=== PATIENT | female | born 1985 | race Caucasian/White ===

== ENCOUNTER 2020-07-13 15:18 | Emergency (ER) | payer MEDICAID, OTHER ==
[~2020-07-13] VITALS: Ht 170 cm; Wt 70.0 kg
[~2020-07-13 15:18] MED LIST: BSP10T PO; CLIN300C11 PO; CRS350T PO; CYCL10TA9 PO; DOXY1TAB3 PO; MEDR10TA9 PO; NAPR-243 PO; PREDNISONE; TRAM50TA2 PO; VALA100033 PO; VALA10004 PO
[2020-07-13 16:12] VITALS: BP 109/88
--- NOTE | 2020-07-13 16:14 | ED EENT ---
History of Present Illness General Chief Complaint: Dental Problems/Pain Stated Complaint: TOOTH EXTRACTION PAIN Source: patient, family History of Present Illness Date Seen by Provider: Jul 13, 2020 Time Seen by Provider: 15:30 Initial Comments 35-year-old female presents post first molar extraction earlier today. Patient presents because she was still having some mild bleeding and was concerned possibly spit out a little bit of tooth. Patient does not have any pain at this time. Patient wanted to have it rechecked. She has no other systemic complaints. She has no fevers chills nausea vomiting. Allergies and Home Medications Allergies Coded Allergies: risperidone (Verified Allergy, Mild, 05/07/14) Home Medications Buspirone Hcl 10 Mg Tablet, 10 MG PO TID, (Reported) Clindamycin HCl 300 Mg Capsule, 300 MG PO BID Prescribed by: SUSANNA FARRELL on 08/22/16 0945 Cyclobenzaprine Hcl 10 Mg Tablet, 1 EACH PO TID PRN for SPASMS Prescribed by: RUDY KEE on 08/18/14 1619 Doxylamine/Pyridoxine HCl 1 Each Tablet.dr, 2 EACH PO BID PRN for NAUSEA Prescribed by: SUSANNA FARRELL on 08/22/16 0945 Tramadol Hcl 50 Mg Tablet, 50 MG PO Q4H PRN for PAIN Prescribed by: RUDY KEE on 08/18/14 1619 Valacyclovir HCl 1,000 Mg Tablet, 1,000 MG PO DAILY Prescribed by: SUSANNA FARRELL on 08/22/16 0951 Valacyclovir Hcl 1,000 Mg Tablet, 500 MG PO DAILY FOR SHINGLES Prescribed by: CLAUDIO ANN on 05/08/14 0046 Patient Home Medication List Home Medication List Reviewed: Yes Review of Systems Review of Systems Constitutional: No chills, No fever Ears: No Symptoms Reported Nose: no symptoms reported Mouth: see HPI Throat: no symptoms reported Respiratory: no symptoms reported Cardiovascular: no symptoms reported Gastrointestinal: no symptoms reported Past Rnnkalr-[id number]-Anueqp Hx Past Med/Social Hx: Reviewed Nursing Past Med/Soc Hx Patient Social History Alcohol Use: Denies Use Recreational Drug Use: No Smoking Status: Current Everyday Smoker Type Used: Cigarettes Recent Foreign Travel: No Contact w/Someone Who Travel: No Recent Hopitalizations: No Seasonal Allergies Seasonal Allergies: No Past Medical History Surgeries: Yes (dental) Respiratory: No Cardiac: No Neurological: No Female Reproductive Disorders: Menstrual Problems Sexually Transmitted Disease: Yes (HPV, genital herpes) Gastrointestinal: No Musculoskeletal: Yes Scoliosis Endocrine: No Cancer: No Psychosocial: Yes Anxiety, PTSD, Depression Integumentary: No Blood Disorders: No Physical Exam Height, Weight, BMI Height: 5'7" Weight: 125lbs. oz. [id number]; 18.64 BMI Method:Stated General Appearance: WD/WN, no apparent distress Mouth/Throat: other (patient with recent first molar extraction with appropriate looking socket with no active bleeding.) Cardiovascular: normal peripheral pulses, regular rate, rhythm Respiratory: no respiratory distress, no accessory muscle use Neurologic/Psychiatric: alert, normal mood/affect, oriented x 3 Skin: normal color, warm/dry Progress/Results/Core Measures Progress Progress Note : Time: 16:13 Progress Note Patient socket looks appropriate stated extraction. She should follow-up with dentist if further concerns Departure Impression Primary Impression: Status post tooth extraction Disposition: 01 HOME, SELF-CARE Condition: Stable Departure-Patient Inst. Referrals: NO,LOCAL PHYSICIAN (PCP/Family) Primary Care Physician Patient Instructions: Tooth Extraction, Dry Socket Add. Discharge Instructions: Follow-up with your dentist as needed Tylenol or ibuprofen as needed for pain All discharge instructions reviewed with patient and/or family. Voiced understanding. LESIA STEIN DO Jul 13, 2020 16:14
== END 2020-07-13 16:25 | disposition home or self-care (01) ==
LOC: EDUNIT# 15:18 → ER 15:20
DX: G89.18 Other acute postprocedural pain (principal); F41.9 Anxiety disorder, unspecified; F32.9 Major depressive disorder, single episode, unspecified; F17.210 Nicotine dependence, cigarettes, uncomplicated; Z88.8 Allergy status to other drugs, medicaments and biological substances; Z98.818 Other dental procedure status
CPT/HCPCS: 99284

== ENCOUNTER → 2021-05-17 | Outpatient (CLI) | payer MEDICAID ==
[~2021-05-17] VITALS: Ht 172.7 cm; Wt 76.4 kg
[~2021-05-17] MED LIST changes: -CLIN300C11 PO; +CLIN300C12 PO; +GADOBUTROL 7.5 MMOL/7.5 ML (GADAVIST) VIAL IV ONE; +IOHEXOL 300 MG/ML 50 ML (OMNIPAQUE 300) VIAL IV ONE
--- NOTE | 2021-05-17 13:58 | Diagnostic Imaging Report ---
INDICATION: Right shoulder pain. Patient brought to the procedure room and placed on table in the supine position. Skin of the right shoulder was prepped and draped in usual sterile fashion. Small amount of 1% lidocaine was utilized for local anesthesia. A 22-gauge needle was advanced into the right shoulder and placed with its tip at the rotator interval. A 15 mm solution of iodinated contrast, normal saline and gadolinium was injected under fluoroscopic observation. Needle was removed and hemostasis was obtained. Patient tolerated procedure well and was sent to MRI in satisfactory condition. Total of 15 seconds of fluoroscopic time was utilized. IMPRESSION: Successful right shoulder injection of gadolinium contrast solution, using fluoroscopy. Dictated by: Dictated on workstation # [id number]
--- NOTE | 2021-05-17 15:09 | Diagnostic Imaging Report ---
PROCEDURE: MRI upper extremity any joint with contrast right. TECHNIQUE: Multiplanar, multisequence contrast-enhanced MRI of the right upper extremity was accomplished. INDICATION: Right shoulder pain. Labral tear. COMPARISON: None. FINDINGS: No acute fracture is seen in the right shoulder. Alignment appears normal. The joint is well distended with contrast. The supraspinatus tendon is intact. The infraspinatus and teres minor tendons are intact. There is significant contrast signal in the mid subscapularis tendon measuring about 7 mm wide which could represent a high-grade partial tear with small full-thickness component, or may be artifact from injection. The long head of the biceps tendon is normal in course and signal. The glenoid labrum appears intact. No paralabral cyst is seen. The acromion has a curved undersurface without hooking. The coracoclavicular and coracoacromial ligaments appear intact. There is no muscular atrophy. Soft tissues about the right shoulder demonstrate no acute abnormality. IMPRESSION: 1. No labral tear is seen in the right shoulder. 2. Defect in the subscapularis tendon, most likely artifact from injection however a tear is not excluded. Dictated by: Dictated on workstation # [id number]
== END ==
LOC: RAD 12:45
PROVIDERS: ATTEND Orthopaedic Surgery
DX: S43.431A Superior glenoid labrum lesion of right shoulder, initial encounter (principal); X58.XXXA Exposure to other specified factors, initial encounter
CPT/HCPCS: 23350; 73040; 73219